=== PATIENT | female | born 1970 | race Two or more races ===

== ENCOUNTER 2019-01-13 21:09 | Inpatient (IN) | payer BC ==
[~2019-01-13] VITALS: Ht 167.6 cm; Wt 71.7 kg
[~2019-01-13 21:09] MED LIST: BUTAPT GT; SIMV-8 PO; ZANAX
[2019-01-13 22:42] LABS: Basophils # (auto) 0.1 uL; Basophils % (auto) 0.9 % (0.0-2.0); Eosinophils # (auto) 0.1 uL; Eosinophils % (auto) 1.4 % (0.0-7.0); Hematocrit 37.9 % (36.0-46.0); Hemoglobin 13.2 g/dL (12.2-16.2); Lymphocytes # (auto) 2.7 uL; Lymphocytes % (auto) 39.4 % (10.0-50.0); Mean Corpuscular Hemoglobin 30.5 pg (28.0-32.0); Mean Corpuscular Hgb Conc. 34.7 g/dL (32.0-36.0); Mean Corpuscular Volume 87.8 fL (80.0-100.0); Monocytes # (auto) 0.4 uL; Monocytes % (auto) 5.9 % (0.0-12.0); Neutrophils # (auto) 3.7 uL; Neutrophils % (auto) 52.4 % (37.0-80.0); Nucleated Red Blood Cells % 0.1 %; Platelet Count (auto) 237 10^3/uL (140-450); Red Blood Cells 4.32 10^6/uL (4.0-5.20); Red Cell Distribution Width 13.4 % (11.8-14.3)
[2019-01-13 23:01] LABS: Albumin 3.9 g/dL (3.4-5.0); Calcium 8.4 mg/dL (8.5-10.1); Potassium 4.3 mmol/L (3.5-5.1)
[2019-01-13 23:07] LABS: BUN/Creatinine Ratio 34.7; Bilirubin, Total 0.3 mg/dL (0.2-1.0); Total Protein 7.6 g/dL (6.4-8.2)
[2019-01-14] MEDS ORDERED: ENOXAPARIN SOD 80 MG/0.8ML SYRINGE SC ONE (03:00)
[2019-01-14] MEDS ORDERED: ONDANSETRON HCL 4 MG/2 ML VIAL IV ONE (03:00)
[2019-01-14] MEDS ORDERED: MORPHINE SULFATE 4 MG/ML SYR/VIAL IV ONE (03:00)
[2019-01-14] MEDS ORDERED: SODIUM CHLORIDE 0.9% 1,000 ML IV ONE (05:00)
[2019-01-14] MEDS ORDERED: MORPHINE SULF INJ 2 MG/ML SYRINGE 1ML IV ONE (05:00)
[2019-01-14] MEDS ORDERED: MORPHINE SULF INJ 2 MG/ML SYRINGE 1ML IV PRN (05:30)
[2019-01-14] MEDS ORDERED: ATORVASTATIN 20 MG TAB PO ONE (05:30)
[2019-01-14] MEDS ORDERED: ACETAMINOPHEN 325 MG TAB PO PRN (05:30)
[2019-01-14] MEDS ORDERED: NITROGLYCERIN 0.4 MG SL TAB SL PRN (05:30)
[2019-01-14] MEDS ORDERED: TEMAZEPAM 15 MG CAP PO PRN (05:30)
[2019-01-14] MEDS ORDERED: ONDANSETRON HCL 4 MG/2 ML VIAL IV PRN (05:30)
[2019-01-14] MEDS ORDERED: D5W/SOD CHLO 0.9% 1,000 ML IV SCH (05:30)
[2019-01-14 06:02] LABS: Cholesterol 211 mg/dL (< 200); HDL Cholesterol 60 mg/dL (40-59); LDL Cholesterol 128 mg/dL (< 100); Triglycerides 98 mg/dL (< 150)
--- NOTE | 2019-01-14 08:57 | NUR ---
PT ADMITTED TO FLOOR VIA WHEEL CHAIR FROM ... PT FAMILY TRANSLATED. PT ORIENTED TO UNIT AND CALL LIGHT. PT REPORTS NO PAIN, CHEST PAIN OR SOB AT THIS TIME. PT ENCOURAGED TO USE CALL LIGHT PRN, WILL CONTINUE TO MONITOR. VITALS: 97.8, 108/73, HR 68, 02 98, RR 14, 0/10 P.
[2019-01-14 09:12] VITALS: BP 108/73
[2019-01-14] MEDS ORDERED: ALPR0.255 PO (09:46)
[2019-01-14] MEDS ORDERED: QUET100T46 PO (09:47)
[2019-01-14] MEDS ORDERED: ENOXAPARIN SOD 100 MG/1 ML SYRINGE SC SCH (10:00)
[2019-01-14] MEDS: FAMOTIDINE 20 MG TAB PO SCH ×2 (10:18→20:55)
[2019-01-14] MEDS: ASPirin 81 mg TAB PO SCH (10:18)
[2019-01-14] MEDS: D5W/SOD CHLO 0.9% 1,000 ML IV SCH (14:35)
[2019-01-14] MEDS: ALPRAZolam 0.25 MG TAB PO PRN (14:45)
[2019-01-14 17:00] VITALS: BP 127/76
[2019-01-14] MEDS: ENOXAPARIN SOD 80 MG/0.8ML SYRINGE SC SCH (20:54)
[2019-01-14] MEDS: METOPROLOL TARTRATE 25 MG TAB PO SCH (21:46)
[2019-01-14 22:00] VITALS: BP 131/85
[2019-01-14] MEDS ORDERED: ATORVASTATIN 20 MG TAB PO SCH ×2 (22:00)
[2019-01-14] MEDS ORDERED: QUEtiapine FUMARATE 100 MG TAB PO SCH (22:00)
[2019-01-15 05:08] VITALS: BP 113/73
[2019-01-15] MEDS: D5W/SOD CHLO 0.9% 1,000 ML IV SCH (06:10)
[2019-01-15 06:14] LABS: Hematocrit 38.2 % (36.0-46.0); Hemoglobin 13.2 g/dL (12.2-16.2); Mean Corpuscular Hemoglobin 30.8 pg (28.0-32.0); Mean Corpuscular Hgb Conc. 34.5 g/dL (32.0-36.0); Mean Corpuscular Volume 89.4 fL (80.0-100.0); Platelet Count (auto) 216 10^3/uL (140-450); Red Blood Cells 4.27 10^6/uL (4.0-5.20); Red Cell Distribution Width 13.5 % (11.8-14.3); White Blood Cell 4.8 10^3/uL (4.4-10.8)
[2019-01-15 06:30] LABS: INR 1.11 (0.9-1.15)
[2019-01-15 06:31] LABS: Calcium 8.5 mg/dL (8.5-10.1); Potassium 3.6 mmol/L (3.5-5.1)
[2019-01-15 06:32] LABS: Band Neutrophils % (manual) 0; Basophils % (manual) 0 (0.0-2.0); Blast Cells 0; Metamyelocytes % 0; Myelocytes % 0; Promyelocytes % 0; Reactive Lymphocytes 0
[2019-01-15 06:40] LABS: BUN/Creatinine Ratio 18.2; Magnesium 2.3 mg/dL (1.6-2.6)
--- NOTE | 2019-01-15 06:40 | NUR ---
PT RESTING WITH EYES CLOSED;RESP EVEN UNLAB;CALL LIGHT IN REACH WITH TWO SIDERAILS UP.
--- NOTE | 2019-01-15 07:30 | NUR ---
Opening Shift Note Assuming care of patient at this time. Patient is awake and alert. Patient denies pain. Patient is [place] speaking only. Bed is lowered with side rails up x2. Instructed patient on the plan of care for today and to call for assistance as needed. Call light within reach. Will continue to round hourly and as needed.
[2019-01-15 07:46] LABS: Eosinophils % (manual) 1 (0-7); Lymphocytes % (manual) 60 (10.0-50.0); Monocytes % (manual) 8 (0-12)
[2019-01-15 09:00] VITALS: BP 128/75
[2019-01-15] MEDS: ASPirin 81 mg TAB PO SCH (10:27)
[2019-01-15] MEDS: FAMOTIDINE 20 MG TAB PO SCH (10:27)
[2019-01-15] MEDS: METOPROLOL TARTRATE 25 MG TAB PO SCH (10:29)
[2019-01-15] MEDS: ENOXAPARIN SOD 80 MG/0.8ML SYRINGE SC SCH (10:30)
[2019-01-15 13:00] VITALS: BP 121/73
[2019-01-15] MEDS ORDERED: MET25T PO (13:52)
[2019-01-15] MEDS ORDERED: ATOR20TA50 PO (13:52)
[2019-01-15] MEDS ORDERED: ASPI-378 PO (13:52)
[2019-01-15] MEDS: ALPRAZolam 0.25 MG TAB PO PRN (15:26)
[2019-01-15 15:45] VITALS: BP 128/75
[2019-01-15 16:59] VITALS: BP 117/73
--- NOTE | 2019-01-15 17:30 | NUR ---
Discharge Discharge instructions given as ordered. Encourage to follow up with Dr. Carvalho as instructed, information given for patient to call on Friday. All questions and concerns addressed. Patient verbalized understanding. IV removed with catheter intact, pressure dressing applied. Telemetry unit returned to ICU. Patient taken to vehicle via wheelchair with all personal belongings, accompanied by staff and family member. No distress noted at time of departure.
== END 2019-01-15 17:30 | disposition home or self-care (01) | DRG 280 ==
LOC: ER 21:11 → MERGE 21:12 → TELE-WESTW 21:12
PROVIDERS: ADMIT Nurse Practitioner; ATTEND Nurse Practitioner
DX: I21.A1 Myocardial infarction type 2 (principal); I50.31 Acute diastolic (congestive) heart failure; G45.9 Transient cerebral ischemic attack, unspecified; I25.119 Atherosclerotic heart disease of native coronary artery with unspecified angina pectoris; E78.5 Hyperlipidemia, unspecified; E03.9 Hypothyroidism, unspecified; F32.9 Major depressive disorder, single episode, unspecified; F41.9 Anxiety disorder, unspecified; H53.8 Other visual disturbances; Z95.5 Presence of coronary angioplasty implant and graft
CPT/HCPCS: 36415; 70450; 71045; 80048; 80053; 80061; 83735; 83880; 84443; 84484; 85007; 85025; 85027; 85610; 93005; 93306; 93886; 96372; 96374; 96375; G0378; J2405; J7042